=== PATIENT | male | born 1980 | race Caucasian/White ===

== ENCOUNTER → 2019-06-22 | Outpatient (CLI) | payer OTHER ==
--- NOTE | 2019-06-22 09:23 | Diagnostic Imaging Report ---
INDICATION: Left foot pain and bruising AP, oblique, and lateral views of the left foot are obtained. No fracture or acute bony abnormality is seen. There is accessory ossicle adjacent to the navicular. IMPRESSION: No acute bone abnormality of left foot. Dictated by: Dictated on workstation # [id number]
== END ==
LOC: RAD FS 08:50
PROVIDERS: ATTEND Nurse Practitioner Family
DX: S99.922A Unspecified injury of left foot, initial encounter (principal)
CPT/HCPCS: 73630

== ENCOUNTER 2021-03-08 09:45 | Emergency (ER) | payer BC, OTHER ==
[~2021-03-08] VITALS: Ht 172.7 cm; Wt 99.8 kg
--- NOTE | 2021-03-08 10:01 | ED Syncope ---
General Chief Complaint: Dizziness/Syncope Stated Complaint: LOC, POSSIBE SEIZURE Source of Information: Patient Exam Limitations: No Limitations History of Present Illness Date Seen by Provider: Mar 08, 2021 Time Seen by Provider: 09:40 Initial Comments Patient to the ER from day surgery with chief complaint that he was sitting in a chair with no complaints and had a syncopal episode with some jerking motions. He has no history of epilepsy, diabetes. He recently started seeing a primary care doctor about a year ago and was diagnosed with hypertension put on lisinopril which he has been tolerating well. He did not eat breakfast this morning. He has never had syncopal episodes in the past. He says he is squ [place] about needles but did not see anybody drawing lab or any needles that he is aware of. He remembers everything up to the point that he passed out and was out for about a minute. His son was there getting surgery and he was just visiting. He is having no pain nausea sweats fever chills cough or shortness of air. Allergies and Home Medications Allergies Coded Allergies: No Known Drug Allergies (Unverified , 03/08/21) Patient Home Medication List Home Medication List Reviewed: Yes Review of Systems Constitutional: No chills, No dizziness, No fever, No malaise, No weakness EENTM: No ear discharge, No hearing loss Respiratory: No cough, No short of breath Cardiovascular: No chest pain, No edema Gastrointestinal: No abdominal pain, No constipation, No diarrhea, No nausea Genitourinary: No discharge, No dysuria Musculoskeletal: No back pain, No joint pain All Other Systems Reviewed Negative Unless Noted: Yes Past Pwavvxy-Dttbgq-Bmqzbt Hx Patient Social History Tobacco Use?: No Use of E-Cig and/or Vaping dev: No Substance use?: No Alcohol Use?: No Physical Exam Vital Signs Vital Signs - First Documented 03/08/21 09:46 Temp 35.5 Pulse 75 Resp 18 B/P (MAP) 118/88 (98) Pulse Ox 99 O2 Delivery Room Air Capillary Refill : Height, Weight, BMI Height: '" Weight: lbs. oz. kg; BMI Method: General Appearance: No Apparent Distress, WD/WN HEENT: PERRL/EOMI (3 mm reactive), TMs Normal, Normal ENT Inspection, Pharynx Normal, Moist Mucous Membranes Neck: Full Range of Motion, Normal Inspection Cardiovascular: Regular Rate, Rhythm, No Edema, No JVD, No Murmur, Normal Keila pheral Pulses Respiratory: Lungs Clear, Normal Breath Sounds, No Accessory Muscle Use, No Respiratory Distress Gastrointestinal: Normal Bowel Sounds, No Organomegaly, Non Tender, Soft Extremities: Normal Capillary Refill, Normal Inspection, No Pedal Edema Neurologic/Psychiatric: Alert, Oriented x3, No Motor/Sensory Deficits, Normal Mood/Affect, product handler II-XII Norm as Tested Cranial Nerves: Normal Hearing, Normal Speech, PERRL Motor/Sensory: No Motor Deficit, No Sensory Deficit Reflexes: 2+ Knee (R), 2+ Knee (L) Skin: Normal Color, Warm/Dry Progress/Results/Core Measures Results/Orders Lab Results Laboratory Tests Test 03/08/21 09:50 03/08/21 10:22 Range/Units White Blood Count 9.5 4.3-11.0 10^3/uL Red Blood Count 5.65 H 4.30-5.52 10^6/uL Hemoglobin 15.8 13.3-17.7 g/dL Hematocrit 47 40-54 % Mean Corpuscular Volume 83 80-99 fL Mean Corpuscular Hemoglobin 28 25-34 pg Mean Corpuscular Hemoglobin Concent 34 32-36 g/dL Red Cell Distribution Width 12.0 10.0-14.5 % Platelet Count 346 130-400 10^3/uL Mean Platelet Volume 8.8 L 9.0-12.2 fL Immature Granulocyte % (Auto) 0 % Neutrophils (%) (Auto) 61 42-75 % Lymphocytes (%) (Auto) 27 12-44 % Monocytes (%) (Auto) 9 0-12 % Eosinophils (%) (Auto) 1 0-10 % Basophils (%) (Auto) 1 0-10 % Neutrophils # (Auto) 5.8 1.8-7.8 10^3/uL Lymphocytes # (Auto) 2.6 1.0-4.0 10^3/uL Monocytes # (Auto) 0.9 0.0-1.0 10^3/uL Eosinophils # (Auto) 0.1 0.0-0.3 10^3/uL Basophils # (Auto) 0.1 0.0-0.1 10^3/uL Immature Granulocyte # (Auto) 0.0 0.0-0.1 10^3/uL Sodium Level 139 135-145 MMOL/L Potassium Level 3.8 3.6-5.0 MMOL/L Chloride Level 99 98-107 MMOL/L Carbon Dioxide Level 28 21-32 MMOL/L Anion Gap 12 5-14 MMOL/L Blood Urea Nitrogen 17 7-18 MG/DL Creatinine 1.12 0.60-1.30 MG/DL Estimat Glomerular Filtration Rate 73 BUN/Creatinine Ratio 15 Glucose Level 117 H 70-105 MG/DL Calcium Level 10.0 8.5-10.1 MG/DL Corrected Calcium 9.6 8.5-10.1 MG/DL Total Bilirubin 1.1 H 0.1-1.0 MG/DL Aspartate Amino Transf (AST/SGOT) 22 5-34 U/L Alanine Aminotransferase (ALT/SGPT) 28 0-55 U/L Alkaline Phosphatase 75 40-136 U/L Troponin I < 0.028 <0.028 NG/ML Total Protein 8.1 6.4-8.2 GM/DL Albumin 4.5 3.2-4.5 GM/DL Serum Alcohol < 10 <10 MG/DL Urine Color YELLOW Urine Clarity CLEAR Urine pH 5.5 5-9 Urine Specific [place] >=1.030 1.016-1.022 Urine Protein NEGATIVE NEGATIVE Urine Glucose (UA) NEGATIVE NEGATIVE Urine Ketones NEGATIVE NEGATIVE Urine Nitrite NEGATIVE NEGATIVE Urine Bilirubin NEGATIVE NEGATIVE Urine Urobilinogen 0.2 < = 1.0 MG/DL Urine Leukocyte Esterase NEGATIVE NEGATIVE Urine RBC (Auto) NEGATIVE NEGATIVE Urine RBC NONE /HPF Urine WBC RARE /HPF Urine Squamous Epithelial Cells NONE /HPF Urine Crystals NONE /LPF Urine Bacteria NEGATIVE /HPF Urine Casts NONE /LPF Urine Mucus NEGATIVE /LPF Urine Culture Indicated NO Urine Opiates Screen NEGATIVE NEGATIVE Urine Oxycodone Screen NEGATIVE NEGATIVE Urine Methadone Screen NEGATIVE NEGATIVE Urine Propoxyphene Screen NEGATIVE NEGATIVE Urine Barbiturates Screen NEGATIVE NEGATIVE Ur Tricyclic Antidepressants Screen NEGATIVE NEGATIVE Urine Phencyclidine Screen NEGATIVE NEGATIVE Urine Amphetamines Screen NEGATIVE NEGATIVE Urine Methamphetamines Screen NEGATIVE NEGATIVE Urine Benzodiazepines Screen NEGATIVE NEGATIVE Urine Cocaine Screen NEGATIVE NEGATIVE Urine Cannabinoids Screen NEGATIVE NEGATIVE My Orders Orders - DOUGLAS JEFFREY Ua Culture If Indicated (03/08/21 09:53) Drug Screen Stat (Urine) (03/08/21 09:53) Alcohol (03/08/21 09:53) Accucheck Stat ONCE (03/08/21 09:53) Cbc With Automated Diff (03/08/21 09:53) Comprehensive Metabolic Panel (03/08/21 09:53) Troponin I (03/08/21 09:53) Continuous Ekg Monitoring (03/08/21 09:53) Ekg Tracing (03/08/21 09:53) Chest 1 View, Ap/Pa Only (03/08/21 09:53) Vital Signs/I&O 03/08/21 09:46 Temp 35.5 Pulse 75 Resp 18 B/P (MAP) 118/88 (98) Pulse Ox 99 O2 Delivery Room Air Progress Progress Note #1: Time: 09:59 Progress Note EKG, labs urine drug screen alcohol. Suspect vasovagal syncope but no historical clues. Progress Note #2: Time: 11:40 Progress Note Patient is neurologically intact and has had no further deterioration during his ER stay. -3 points [place] Syncope Risk Score. Very low risk; 0.4% risk of 30-day serious adverse event. Initial ECG Impression Date: Mar 08, 2021 Initial ECG Impression Time: 09:45 Initial ECG Rate: 65 Initial ECG Rhythm: Normal Sinus Initial ECG Intervals: Normal Initial ECG Impression: Normal Initial ECG Comparisson: No Previous ECG Available Comment Normal sinus rhythm without clinically relevant ST changes. Diagnostic Imaging Diagonstic Imaging: Xray Plain Films/CT/US/NM/MRI: chest Comments [facility]. [place], [place] NAME: ZBIGNIEW BRANCH William MED REC#: [id number] PT STATUS: REG ER : 1980 PHYSICIAN: DOUGLAS JEFFREY MD ADMIT DATE: 03/08/21/ER Draft Date of Exam:03/08/21 CHEST 1 VIEW, AP/PA ONLY INDICATION: Syncope. No priors The heart size and its configuration was normal Cardiomediastinal and hilar contours normal. The lungs clear. No effusion or pneumothorax. No free air beneath the diaphragms. IMPRESSION: Normal frontal chest x-ray. Dictated on workstation # [id number] Dict: 03/08/21 1016 Trans: 03/08/21 1017 CV [id number] Interpreted by: ARASH BRAN Electronically signed by: Reviewed: Reviewed by Me Departure Impression Primary Impression: Syncope Qualified Codes: R55 - Syncope and collapse Disposition: 01 HOME, SELF-CARE Condition: Stable Departure-Patient Inst. Decision time for Depature: 11:43 Referrals: NO,LOCAL PHYSICIAN (PCP/Family) Primary Care Physician Patient Instructions: Syncope (Fainting) (DC) Add. Discharge Instructions: Call your primary care provider and make follow-up appointment in the next 2 to 4 weeks. Continue taking your medications as prescribed. All discharge instructions reviewed with patient and/or family. Voiced understanding. DOUGLAS JEFFREY Mar 08, 2021 10:01
[2021-03-08 10:02] LABS: BASOPHILS # (AUTO) 0.1 10^3/uL (0.0-0.1); BASOPHILS % (AUTO) 1 % (0-10); EOSINOPHILS # (AUTO) 0.1 10^3/uL (0.0-0.3); EOSINOPHILS % (AUTO) 1 % (0-10); HEMATOCRIT 47 % (40-54); HEMOGLOBIN 15.8 g/dL (13.3-17.7); LYMPHOCYTES # (AUTO) 2.6 10^3/uL (1.0-4.0); LYMPHOCYTES % (AUTO) 27 % (12-44); MEAN CORPUSCULAR HEMOGLOBIN 28 pg (25-34); MEAN CORPUSCULAR HGB CONC 34 g/dL (32-36); MEAN CORPUSCULAR VOLUME 83 fL (80-99); MEAN PLATELET VOLUME 8.8 fL (9.0-12.2); MONOCYTES # (AUTO) 0.9 10^3/uL (0.0-1.0); MONOCYTES % (AUTO) 9 % (0-12); NEUTROPHILS # (AUTO) 5.8 10^3/uL (1.8-7.8); NEUTROPHILS % (AUTO) 61 % (42-75); PLATELET COUNT 346 10^3/uL (130-400); WHITE BLOOD COUNT 9.5 10^3/uL (4.3-11.0)
[2021-03-08 10:09] LABS: ALBUMIN 4.5 GM/DL (3.2-4.5); CHLORIDE 99 MMOL/L (98-107); POTASSIUM 3.8 MMOL/L (3.6-5.0); SODIUM 139 MMOL/L (135-145)
[2021-03-08 10:11] LABS: GLUCOSE 117 MG/DL (70-105)
[2021-03-08 10:12] LABS: CARBON DIOXIDE 28 MMOL/L (21-32); TOTAL PROTEIN 8.1 GM/DL (6.4-8.2)
[2021-03-08 10:13] LABS: BILIRUBIN,TOTAL 1.1 MG/DL (0.1-1.0)
[2021-03-08 10:15] LABS: ALKALINE PHOSPHATASE 75 U/L (40-136); CREATININE SERUM 1.12 MG/DL (0.60-1.30); GFR ESTIMATED 73
[2021-03-08 10:16] LABS: BUN/CREATININE RATIO 15
--- NOTE | 2021-03-08 10:17 | Diagnostic Imaging Report ---
INDICATION: Syncope. No priors The heart size and its configuration was normal Cardiomediastinal and hilar contours normal. The lungs clear. No effusion or pneumothorax. No free air beneath the diaphragms. IMPRESSION: Normal frontal chest x-ray. Dictated by: Dictated on workstation # [id number]
[2021-03-08 10:18] LABS: ALANINE AMINOTRANSFERASE 28 U/L (0-55)
[2021-03-08 10:30] LABS: BILIRUBIN,URINE NEGATIVE (NEGATIVE); CLARITY,URINE CLEAR; COLOR,URINE YELLOW; GLUCOSE, URINE (UA) NEGATIVE (NEGATIVE); KETONES,URINE NEGATIVE (NEGATIVE); LEUKOCYTE ESTERASE ,URINE NEGATIVE (NEGATIVE); NITRITE,URINE NEGATIVE (NEGATIVE); PH,URINE 5.5 (5-9); PROTEIN,URINE NEGATIVE (NEGATIVE)
[2021-03-08 10:45] LABS: AMPHETAMINE SCREEN, URINE NEGATIVE (NEGATIVE); BARBITURATE SCREEN URINE NEGATIVE (NEGATIVE); BENZODIAZEPINES SCREEN URINE NEGATIVE (NEGATIVE); CANNABINOID SCREEN, URINE NEGATIVE (NEGATIVE); COCAINE SCREEN URINE NEGATIVE (NEGATIVE); METHADONE STAT NEGATIVE (NEGATIVE); METHAMPHETAMINE SCREEN URINE S NEGATIVE (NEGATIVE); OPIATE SCREEN URINE NEGATIVE (NEGATIVE); OXYCODONE STAT NEGATIVE (NEGATIVE); PROPOXYPHENE STAT NEGATIVE (NEGATIVE); TRICYCLIC ANTIDEPRESSANTS SCRE NEGATIVE (NEGATIVE)
[2021-03-08 10:47] LABS: BACTERIA,URINE NEGATIVE /HPF; WBC,URINE RARE /HPF
[2021-03-08 11:52] VITALS: BP 142/92
== END 2021-03-08 11:52 | disposition home or self-care (01) ==
LOC: EDUNIT# 09:45 → ER 09:47
DX: R55 Syncope and collapse (principal); I10 Essential (primary) hypertension; E11.9 Type 2 diabetes mellitus without complications
CPT/HCPCS: 71045; 80053; 80306; 81000; 84484; 85025; 93005; 99284; G0480; 36415; 80320